=== PATIENT | female | born 1960 | race Caucasian/White ===

== ENCOUNTER 2017-05-30 09:17 | Day surgery (SDC) | payer OTHER ==
[2017-05-28 12:04] VITALS: BMI 26.2
[~2017-05-30 09:17] MED LIST: LACTATED RINGERS 1,000 ML IV SCH
[2017-05-30 10:46] VITALS: RESP 16; TEMP 98.9
[2017-05-30] MEDS ORDERED: LIDOCAINE 1% 20 ML VIAL (10MG/ML) FOR IV START INTRADERMA ONE (10:47)
[2017-05-30] MEDS ORDERED: LIDOCAINE 1% INJ 10MG/ML (20 ML MDV) ONE (11:35)
[2017-05-30] MEDS ORDERED: PROPOFOL 10 MG/ML 20 ML VIAL IV ONE (11:35)
--- NOTE | 2017-05-30 11:40 | P.GSHP ---
History of Present Illness H&P Date: 05/30/17 Chief Complaint: GERD, constipation, change in bowel habits This is a 56-year-old female who's had issues with GERD and constipation. Patient also states she may have a rectal prolapse. She presents today for EGD and colonoscopy. Past Medical History Additional Past Medical History / Comment(s): constipation,can feel rectum inside vaginal space. History of Any Multi-Drug Resistant Organisms: None Reported Past Surgical History: Hysterectomy, Tonsillectomy Additional Past Surgical History / Comment(s): tonsillectomy x2,vocal polyps removed,elbow procedures to repair tears,nickolas plantar fasciitis,rectocele Past Anesthesia/Blood Transfusion Reactions: Postoperative Nausea & Vomiting ( PONV) Additional Past Anesthesia/Blood Transfusion Reaction / Comment(s): no hx blood transfusion Smoking Status: Former smoker - Past Family History Mother Family Medical History: No Reported History Father Family Medical History: Cancer Medications and Allergies Home Medications Medication Instructions Recorded Confirmed Type Ceyeerikae Pepper Supplement 1 tab PO DAILY 05/28/17 05/30/17 History Gabapentin [Neurontin] 400 mg PO BID PRN 05/28/17 05/30/17 History Linaclotide [Linzess] 145 mcg PO QAM 05/28/17 05/30/17 History Polyethylene Glycol 3350 [Miralax] 17 gm PO DAILY PRN 05/28/17 05/30/17 History Sennosides [Senokot] 25.8 mg PO BID 05/28/17 05/30/17 History Allergies Allergy/AdvReac Type Severity Reaction Status Date / Time Iodinated Contrast- Oral and Allergy Rash/Hives Verified 05/30/17 10:31 IV Dye iodine Allergy Rash/Hives Verified 05/30/17 10:31 levofloxacin [From Levaquin] Allergy tears Verified 05/30/17 10:31 multiple joints wendy Allergy Anaphylaxis Verified 05/30/17 10:31 penicillin V [From Pen-Vee K] Allergy Rash/Hives Verified 05/30/17 10:31 Surgical - Exam Vital Signs Temp Pulse Resp BP Pulse Ox 98.9 F 65 16 136/83 100 05/30/17 10:44 05/30/17 10:44 05/30/17 10:44 05/30/17 10:44 05/30/17 10:44 - General well developed, no distress - Eyes PERRL - ENT normal pinna - Neck no masses - Respiratory normal expansion - Cardiovascular Rhythm: regular - Abdomen Abdomen: soft, non tender Assessment and Plan Plan: GERD, constipation and change in bowel habits. We'll perform EGD and colonoscopy.
--- NOTE | 2017-05-30 12:00 | P.OP ---
Date of Procedure: 05/30/17 Preoperative Diagnosis: GERD Constipation Change in bowel habits Postoperative Diagnosis: Antral gastritis Hiatal hernia Mild esophagitis Normal redundant colon Procedure(s) Performed: EGD Colonoscopy Anesthesia: MAC Surgeon: Hussein Prather Pathology: other (Antrum, esophagus) Condition: stable Disposition: PACU Description of Procedure: The patient's placed on the endoscopy table in the lateral position. She received IV sedation. The gastroscope placed oropharynx and passed in the esophagus and stomach. The scope was then placed through the pylorus. The first and second portion of the duodenum appeared normal. The scope was then brought back and the antrum and this was mildly inflamed. Scope was then retroflexed and the remainder of the stomach appeared normal. There was a hiatal hernia visualized. The GE junction was at 38 cm. The distal esophagus was minimal inflamed and a biopsies performed. The proximal esophagus appeared normal. Scope was withdrawn for patient.
[2017-05-30 12:50] VITALS: BP 163/87; PULSE 61
== END 2017-05-30 13:16 | disposition home or self-care (01) ==
LOC: ORWHC2ENDO 09:17
PROVIDERS: ATTEND Surgery
DX: K29.50 Unspecified chronic gastritis without bleeding (principal); K20.9 Esophagitis, unspecified; K44.9 Diaphragmatic hernia without obstruction or gangrene; Z87.891 Personal history of nicotine dependence; Z79.899 Other long term (current) drug therapy; Z88.1 Allergy status to other antibiotic agents; Z91.041 Radiographic dye allergy status; Z88.0 Allergy status to penicillin; Z91.018 Allergy to other foods
CPT/HCPCS: 88305; 88342; 45378; 43239; J2001; J2704

== ENCOUNTER → 2018-02-14 | Outpatient (CLI) | payer OTHER ==
--- NOTE | 2018-02-14 09:25 | FL ---
EXAMINATION TYPE: FL barium enema w air contrast DATE OF EXAM: 02/14/2018 COMPARISON: NONE HISTORY: Constipation for 30 years with history of surgically corrected rectocele and enterocele 6 mo nths ago and prior hernia repair. Known flaccid sigmoid colon. TECHNIQUE: A double contrast barium enema study is performed. 3 minutes and 24 seconds of fluoroscop y time was utilized with 55 images saved. 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 There is progressive dilatation of the rectosigmoid junction to approximately 2.5 times the more dist al sigmoid colon. Few sigmoid small diverticula are incidentally seen. No evidence of any mass or janis yp, obstructing or constricting lesion throughout the colon. There is a persistent very small area of contrast filling past the balloon concerning for minimal prolapse recurrence although direct visuali zation is recommended to confirm this finding. Postevacuation images are unremarkable other than bita ined colonic contrast. IMPRESSION: 1. Persistent rectosigmoid distention to approximately 2.5 times the caliber of the proximal sigmoid colon compatible with the patient's history of atonic distal colon. 2. Small focal protuberant area left laterally concerning for focal recurrence of the rectocele. Dire ct visualization is recommended for confirmation. 3. Few sigmoid diverticula. No stricture or intraluminal filling defect.
== END ==
LOC: RADFLMAIN 07:35
PROVIDERS: ATTEND Surgery
DX: K63.89 Other specified diseases of intestine (principal); K57.30 Diverticulosis of large intestine without perforation or abscess without bleeding
CPT/HCPCS: 74280

== ENCOUNTER → 2018-03-07 | Outpatient (CLI) | payer OTHER ==
[2018-03-07 14:21] LABS: HCT 41.7 % (34.0-46.0); HGB 14.1 gm/dL (11.4-16.0); MCH 30.3 pg (25.0-35.0); MCHC 33.9 g/dL (31.0-37.0); MCV 89.3 fL (80.0-100.0); Mean Platelet Volume 6.9; Platelet Count 323 k/uL (150-450); RBC 4.67 m/uL (3.80-5.40); WBC 7.1 k/uL (3.8-10.6)
[2018-03-07 14:27] LABS: Potassium 4.2 mmol/L (3.5-5.1)
== END | disposition home or self-care (01) ==
LOC: LABPAT 13:23
PROVIDERS: ATTEND Surgery
DX: Z01.812 Encounter for preprocedural laboratory examination (principal)
CPT/HCPCS: 36415; 80051; 85027; 93005

== ENCOUNTER 2018-03-15 09:49 | Inpatient (IN) | payer OTHER ==
[2018-03-07 15:50] VITALS: BMI 25.8
[~2018-03-15 09:49] MED LIST changes: +DEXAMETHASONE SOD PHOSPHATE 10 MG/ML 1 ML VIAL IV ONE; +HEPARIN SODIUM,PORCINE 5,000 UNIT/ML 1 ML VIAL SQ ONE; -LACTATED RINGERS 1,000 ML IV SCH; +MIDAZOLAM 2 MG/2 ML VIAL IV PRN; +ONDANSETRON 4 MG/2 ML VIAL IVP ONE; +SCOPOLAMINE 1.5MG/72HR PATCH TRANSDERM ONE; +ceFAZolin IN SWFI 2 GM/20 ML SYRINGE IVP ONE; +fentaNYL (PF) 50 MCG/ML 2 ML AMP IV PRN
[2018-03-15] MEDS ORDERED: LACTATED RINGERS 1,000 ML IV ONE ×2 (10:30→12:15)
[2018-03-15] MEDS ORDERED: LIDOCAINE 1% 20 ML VIAL (10MG/ML) FOR IV START INTRADERMA ONE (10:30)
[2018-03-15] MEDS ORDERED: MIDAZOLAM 2 MG/2 ML VIAL IVP ONE (10:40)
--- NOTE | 2018-03-15 10:46 | P.GSHP ---
History of Present Illness H&P Date: 03/15/18 Chief Complaint: diverticulitis, constipation this a 57-year-old female who's had chronic issues with diverticulitis and constipation. Patient developed severe pain from constipation. She also has diverticulitis. Patient rents today for low anterior section. Patient centimeters surgery including possible colostomy. Past Medical History Past Medical History: Asthma, GERD/Reflux, Hyperlipidemia Additional Past Medical History / Comment(s): COLD-INDUCED ASTHMA. CHRONIC Severe Constipation, RECTOSIGMOID BOWEL DISTENTION. HX Hiatal Hernia. History of Any Multi-Drug Resistant Organisms: None Reported Past Surgical History: Hysterectomy, Tonsillectomy Additional Past Surgical History / Comment(s): tonsillectomy x2. Vocal polyps removed, Elbow procedures to repair tears. Ricardo plantar fasciitis PROC. Rectocele, ENTEROCELE SURG X2. LAP EYAD 06/21/2017. Past Anesthesia/Blood Transfusion Reactions: Postoperative Nausea & Vomiting ( PONV) Additional Past Anesthesia/Blood Transfusion Reaction / Comment(s): no hx blood transfusion Smoking Status: Former smoker - Past Family History Mother Family Medical History: No Reported History Father Family Medical History: Cancer Medications and Allergies Home Medications Medication Instructions Recorded Confirmed Type Gabapentin [Neurontin] 400 mg PO BID PRN 05/28/17 03/07/18 History Linaclotide [Linzess] 145 mcg PO BID 05/28/17 03/07/18 History Polyethylene Glycol 3350 [Miralax] 17 gm PO DAILY PRN 05/28/17 03/07/18 History Diclofenac Sodium [Voltaren] 50 mg PO BID PRN 06/15/17 03/07/18 History Sennosides [Senna] 8.6 mg PO BID 06/21/17 03/07/18 History Albuterol Inhaler [Ventolin Hfa 1 - 2 puff INHALATION RT-Q6H PRN 03/07/18 History Inhaler] Albuterol Inhaler [Ventolin Hfa 1 - 2 puff INHALATION RT-Q6H PRN 03/07/18 History Inhaler] Biotin (Unknown Dose) 1 tab PO DAILY 03/07/18 03/15/18 History Gummy 1 dose PO DAILY 03/07/18 03/15/18 History Vitamin B (Unknown Dose) 1 tab PO DAILY 03/07/18 03/15/18 History Allergies Allergy/AdvReac Type Severity Reaction Status Date / Time cortisone Allergy Anaphylaxis Verified 03/07/18 15:33 Iodinated Contrast- Oral and Allergy Rash/Hives Verified 03/07/18 15:33 IV Dye iodine Allergy Rash/Hives Verified 03/07/18 15:33 levofloxacin [From Levaquin] Allergy tears Verified 03/07/18 15:33 multiple joints wendy Allergy Anaphylaxis Verified 03/07/18 15:33 penicillin V [From Pen-Vee K] Allergy Rash/Hives Verified 03/07/18 15:33 FLU VACCINE Allergy Nausea & Uncoded 03/07/18 15:33 Vomiting, FEVER Surgical - Exam Vital Signs Temp Pulse Resp BP Pulse Ox 98.0 F 73 18 191/89 99 03/15/18 10:15 03/15/18 10:15 03/15/18 10:15 03/15/18 10:15 03/15/18 10:15 - General well developed, no distress - Eyes PERRL - ENT normal pinna - Neck no masses - Respiratory normal expansion - Cardiovascular Rhythm: regular - Abdomen Abdomen: soft, non tender Assessment and Plan Plan: history of chronic constipation Diverticulitis we willPerformed low anterior section
[2018-03-15] MEDS ORDERED: NALOXONE 0.4 MG/ML 1 ML VIAL IV PRN (11:04)
[2018-03-15] MEDS ORDERED: ePHEDrine SULFATE/0.9% NACL/PF 50 MG/5 ML SYRINGE IV ONE (11:11)
[2018-03-15] MEDS ORDERED: ROCURONIUM BROMIDE 10 MG/ML 10 ML VIAL IV ONE (11:11)
[2018-03-15] MEDS ORDERED: fentaNYL (PF) 50 MCG/ML 2 ML AMP ONE (11:11)
[2018-03-15] MEDS ORDERED: HEPARIN SODIUM,PORCINE 5,000 UNIT/ML 1 ML VIAL ONE (11:11)
[2018-03-15] MEDS ORDERED: SUCCINYLCHOLINE CHLORIDE 100 MG/5 ML SYR IV ONE (11:11)
[2018-03-15] MEDS ORDERED: GLYCOPYRROLATE 0.2 MG/ML 2 ML VIAL ONE (11:11)
[2018-03-15] MEDS ORDERED: PROPOFOL 10 MG/ML 20 ML VIAL IV ONE (11:11)
[2018-03-15] MEDS ORDERED: NEOSTIGMINE 1 MG/ML 10 ML VIAL ONE (11:11)
[2018-03-15] MEDS ORDERED: BENZOCAINE/MENTHOL LOZENG 1 EACH LOZENGE MUCOUS MEM PRN (13:01)
--- NOTE | 2018-03-15 13:01 | P.OP ---
Date of Procedure: 03/15/18 Preoperative Diagnosis: Diverticulitis Constipation Postoperative Diagnosis: Diverticulitis Constipation Procedure(s) Performed: Low anterior resection Anesthesia: PORSHA Surgeon: Hussein Prather Estimated Blood Loss (ml): 50 Pathology: other (Sigmoid and left colon) Condition: stable Disposition: PACU Description of Procedure: PriDESCRIPTION OF PROCEDURE: The patient was placed on the operating table in the supine position. Patient received a general anesthesia. Patient was then placed in the dorsal lithotomy position. The patients abdomen was prepped and draped in the usual sterile fashion. Through a low midline incision, the abdomen was entered. The Shira retractor was placed in the wound. The stomach appeared normal. The small bowel appeared normal. The liver appeared normal. The right colon and transverse colon appeared normal. On the left colon, there was an extensive diverticulosis noted. The sigmoid colon was then mobilized by dividing the white line of Toldt with electrocautery. At this point, the proximal sigmoid colon was transected with a GI stapler after a window had been made in the mesentery. The distal sigmoid colon was then dissected. Mesentery was taken down between Brooke clamps and ligated with #0 silk ties. At a point beyond the lesion, the bowel was then transected with a Proximate stapler. This was then removed. The splenic flexure was then taken down in order to provide adequate lengthening of the sigmoid colon. At this point, the auto purse-string suture device was placed across the proximal colon and fired. The colon was then opened. The 29 mm EEA anvil was then placed into the colon and then the purse- string was secured. The EEA stapler device was then placed in the patients anus and passed into the rectum. The nail for the EEA was then brought out through the distal rectum and then attached to the anvil. The EEA stapler device was then fired. The anastomosis was inspected. There were 2 good donuts of tissue removed from the EEA stapler. The anastomosis was then tested under water and there was no air leak seen. At this point the abdomen was then irrigated. There was no bleeding seen. The fascia was then closed with double stranded #1 PDS. The skin was closed with mariana. The patient tolerated the procedure well.
[2018-03-15] MEDS: ROPIVACAINE 250 MG, HYDROMORPHONE (PF) 5 MG in SODIUM CHLORIDE 0.9% 200 ML EPIDURAL PRN ×2 (13:07→14:07)
[2018-03-15] MEDS ORDERED: ONDANSETRON 4 MG/2 ML VIAL IVP ONE (13:30)
[2018-03-15] MEDS ORDERED: diphenhydrAMINE 50 MG/ML 1 ML VIAL IVP ONE (13:35)
[2018-03-15 16:47] LABS: Basophils % (A) 0 %; Eosinophils % (A) 0 %; HCT 42.8 % (34.0-46.0); HGB 14.4 gm/dL (11.4-16.0); Lymphocytes # (A) 0.5 k/uL (1.0-4.8); Lymphocytes % (A) 5 %; MCH 30.1 pg (25.0-35.0); MCHC 33.6 g/dL (31.0-37.0); MCV 89.7 fL (80.0-100.0); Mean Platelet Volume 6.9; Monocytes # (A) 0.3 k/uL (0-1.0); Monocytes % (A) 3 %; Neutrophils # (A) 10.4 k/uL (1.3-7.7); Neutrophils % (A) 92 %; Platelet Count 277 k/uL (150-450); RBC 4.77 m/uL (3.80-5.40); RDW 12.8 % (11.5-15.5); WBC 11.3 k/uL (3.8-10.6)
[2018-03-15] MEDS: ONDANSETRON 4 MG/2 ML VIAL IVP PRN (16:57)
[2018-03-15 17:05] LABS: Anion Gap 9 mmol/L; Blood Urea Nitrogen 10 mg/dL (7-17); Calcium 8.7 mg/dL (8.4-10.2); Carbon Dioxide 23 mmol/L (22-30); Chloride 108 mmol/L (98-107); Glucose 141 mg/dL (74-99); Potassium 3.8 mmol/L (3.5-5.1); Sodium 140 mmol/L (137-145)
[2018-03-15] MEDS: LACTATED RINGERS 1,000 ML IV SCH (17:15)
[2018-03-15] MEDS: D5-0.45% NACL WITH KCL 20MEQ/L 1,000 ML IV SCH (18:01)
[2018-03-15] MEDS: HEPARIN SODIUM,PORCINE 5,000 UNIT/ML 1 ML VIAL SQ SCH (18:02)
--- NOTE | 2018-03-15 20:02 | P.CONS ---
History of Present Illness - Reason for Consult Consult date: 03/15/18 Medical management of asthma, hyperlipidemia and other medical problems - Chief Complaint Elective colon surgery - History of Present Illness Patient is a 57-year-old female with known history of asthma, hyperlipidemia and history of GERD status post Eyad fundoplication as well as chronic severe constipation with rectosigmoid bowel distention as well as diverticulitis was admitted to the hospital for low anterior resection. Patient tolerated the procedure. Currently pain is controlled with epidural. Complains of nausea otherwise denied any vomiting. No chest pain or shortness of breath. No headache or dizziness or lightheadedness. Review of Systems Constitutional: Patient denies any fever or chills . No generalized weakness or weight loss. Abdomen: Abdominal soreness and nausea. No vomiting. Cardiovascular: Patient denies any chest pain or short of breath no palpitations. Respiratory: patient denied any cough is from production. No shortness of breath Neurologic: Patient denied any numbness or tingling headache. Musculoskeletal: Patient denies any complaints of joint swelling or deformity. Skin: Negative Psychiatric: Negative Endocrine: No heat or cold intolerance. No recent weight gain. Genitourinary: No dysuria or hematuria. All other 14 point ROS negative except the above Past Medical History Past Medical History: Asthma, GERD/Reflux, Hyperlipidemia Additional Past Medical History / Comment(s): COLD-INDUCED ASTHMA. CHRONIC Severe Constipation, RECTOSIGMOID BOWEL DISTENTION. HX Hiatal Hernia. History of Any Multi-Drug Resistant Organisms: None Reported Past Surgical History: Hysterectomy, Tonsillectomy Additional Past Surgical History / Comment(s): tonsillectomy x2. Vocal polyps removed, Elbow procedures to repair tears. Ricardo plantar fasciitis PROC. Rectocele, ENTEROCELE SURG X2. LAP EYAD 06/21/2017. Past Anesthesia/Blood Transfusion Reactions: Postoperative Nausea & Vomiting ( PONV) Additional Past Anesthesia/Blood Transfusion Reaction / Comm: no hx blood transfusion Smoking Status: Former smoker - Past Family History Mother Family Medical History: No Reported History Father Family Medical History: Cancer Medications and Allergies Home Medications Medication Instructions Recorded Confirmed Type Gabapentin [Neurontin] 400 mg PO BID PRN 05/28/17 03/15/18 History Linaclotide [Linzess] 145 mcg PO BID 05/28/17 03/15/18 History Polyethylene Glycol 3350 [Miralax] 17 gm PO DAILY PRN 05/28/17 03/15/18 History Diclofenac Sodium [Voltaren] 50 mg PO BID PRN 06/15/17 03/15/18 History Sennosides [Senna] 8.6 mg PO BID 06/21/17 03/15/18 History Albuterol Inhaler [Ventolin Hfa 1 - 2 puff INHALATION RT-Q6H PRN 03/07/18 History Inhaler] Gummy 1 tab PO DAILY 03/07/18 03/15/18 History Vitamin B (Unknown Dose) 1 tab PO DAILY 03/07/18 03/15/18 History Biotin 5 mg PO DAILY 03/15/18 03/15/18 History Docusate [Colace] 100 mg PO BID #20 capsule 03/15/18 Rx HYDROcodone/APAP 7.5-325MG [[place] 1 tab PO Q4H PRN 3 Days #18 tab 03/15/18 Rx 7.5-325] Allergies Allergy/AdvReac Type Severity Reaction Status Date / Time cortisone Allergy Anaphylaxis Verified 03/15/18 14:47 Iodinated Contrast- Oral and Allergy Rash/Hives Verified 03/15/18 14:47 IV Dye iodine Allergy Rash/Hives Verified 03/15/18 14:47 levofloxacin [From Levaquin] Allergy tears Verified 03/15/18 14:47 multiple joints wendy Allergy Anaphylaxis Verified 03/15/18 14:47 penicillin V [From Pen-Vee K] Allergy Rash/Hives Verified 03/15/18 14:47 FLU VACCINE Allergy Nausea & Uncoded 03/07/18 15:33 Vomiting, FEVER Physical Exam Vitals: Vital Signs Temp Pulse Resp BP Pulse Ox 03/15/18 14:07 64 16 126/67 94 L 03/15/18 13:52 61 16 132/65 94 L 03/15/18 13:37 67 16 144/64 94 L 03/15/18 13:22 67 16 162/73 94 L 03/15/18 13:07 98 F 69 16 170/70 98 03/15/18 10:54 71 16 131/64 99 03/15/18 10:44 72 18 151/74 98 03/15/18 10:15 98.0 F 73 18 191/89 99 Intake and Output 03/15/18 03/15/18 03/15/18 06:59 14:59 22:59 Intake Total 1510 Output Total 210 Balance 1300 Intake: IV 1510 Output: Urine 190 Estimated Blood Loss 20 PHYSICAL EXAMINATION: Patient is lying in the bed comfortably, mild distress, awake alert and oriented.. HEENT: Normocephalic. Neck is supple. Pupils reactive. Nostrils clear. Oral cavity is moist. Ears reveal no drainage. Neck reveals no JVD, carotid bruits, or thyromegaly. CHEST EXAMINATION: Trachea is central. Symmetrical expansion. Decreased bibasilar air entry. Lung cho clear to auscultation and percussion. CARDIAC: Normal S1, S2 with no gallops. No murmurs ABDOMEN: Soft. Bowel sounds diminished. No organomegaly. No abdominal bruits. Extremities: reveal no edema. No clubbing or cyanosis Neurologically awake, alert, oriented x3 with well-coordinated movements. No focal deficits noted Skin: No rash or skin lesions. Psychiatric: Coperative. Nonsuicidal Musculoskeletal: No joint swelling or deformity. Normal range of motion. Results CBC & Chem 7: 03/15/18 16:19 03/15/18 16:19 Assessment and Plan Assessment: Low anterior resection of the colon due to diverticulitis and constipation chronic Asthma stable. GERD with history of Eyad fundoplication Hyperlipidemia Chronic severe constipation with the rectosigmoid bowel distention History of hiatal hernia Previous history of smoking Plan: Patient will be continued on IV fluids pain management and encouraged incentive spirometry. Continue with the breathing treatments as needed for asthma. Otherwise we'll continue the current management and further recommendations based on the clinical course. We will continue to follow closely. Thank you for your consult. Time with Patient: Greater than 30
[2018-03-15] MEDS: ALVIMOPAN 12 MG CAPSULE PO SCH (21:23)
[2018-03-15] MEDS: FAMOTIDINE 20 MG/2 ML VIAL IV SCH (21:23)
[2018-03-16] MEDS: D5-0.45% NACL WITH KCL 20MEQ/L 1,000 ML IV SCH ×4 (01:36→17:12)
[2018-03-16] MEDS: HEPARIN SODIUM,PORCINE 5,000 UNIT/ML 1 ML VIAL SQ SCH ×4 (01:36→23:32)
[2018-03-16] MEDS: ONDANSETRON 4 MG/2 ML VIAL IVP PRN ×2 (01:50→18:52)
[2018-03-16] MEDS: LACTATED RINGERS 1,000 ML IV SCH (03:35)
[2018-03-16] MEDS: FAMOTIDINE 20 MG/2 ML VIAL IV SCH ×2 (08:52→21:04)
[2018-03-16] MEDS: ALVIMOPAN 12 MG CAPSULE PO SCH ×2 (08:53→21:05)
[2018-03-16] MEDS: ROPIVACAINE 250 MG, HYDROMORPHONE (PF) 5 MG in SODIUM CHLORIDE 0.9% 200 ML EPIDURAL PRN (10:44)
--- NOTE | 2018-03-16 13:43 | P.PN ---
Subjective Progress Note Date: 03/16/18 Patient is status post lower anterior resection. She is doing very well. Pain is controlled with epidural. She is using her incentive spirometer. No nausea or vomiting. She is tolerating liquids. Objective - Vital Signs Vital signs: Vital Signs Temp 98.3 F 03/16/18 08:02 Pulse 75 03/16/18 08:02 Resp 18 03/16/18 08:02 BP 99/53 03/16/18 08:02 Pulse Ox 96 03/16/18 08:02 Intake & Output 03/15/18 03/16/18 03/16/18 18:59 06:59 18:59 Intake Total 2150 2000 Output Total 410 1250 600 Balance 1740 750 -600 Weight 74.843 kg Intake: IV 1510 Intake, IV Titration 2000 Amount D5-0.45% NaCl with KCl 2000 20Meq/l 1,000 ml @ 125 mls/hr IV .Q8H [facility] Rx#: [id number] Oral 640 Output: Urine 390 800 600 Emesis 450 Estimated Blood Loss 20 Other: Voiding Method Indwelling Catheter Indwelling Catheter - Exam ABDOMEN: Active. Nondistended. No peritonitis. GENERAL: Well developed and in no acute distress. Pleasant. HEENT: No sclera icterus. Extraocular movements grossly intact. Moist buccal mucosa. Head is atraumatic, normocephalic. Hears conversational speech. No nasal drainage. NECK: Supple without lymphadenopathy. No JV distention. CHEST: Non-labored respirations and equal bilateral excursions. CARDIOVASCULAR: Regular rate and rhythm. Palpable 2+ radial pulses. MUSCULOSKELETAL: No clubbing, cyanosis or edema. NEUROLOGIC: No focal or lateralizing signs. PSYCH: Appropriate affect. Alert and oriented to person, place and time. SKIN: Good skin turgor. Well perfused. - Labs CBC & Chem 7: 03/15/18 16:19 03/15/18 16:19 Labs: Abnormal Lab Results - Last 24 Hours (Table) 03/15/18 03/15/18 Range/Units 16:19 16:19 WBC 11.3 H (3.8-10.6) k/uL Neutrophils # 10.4 H (1.3-7.7) k/uL Lymphocytes # 0.5 L (1.0-4.8) k/uL Chloride 108 H (98-107) mmol/L Glucose 141 H (74-99) mg/dL Assessment and Plan (1) Diverticulitis large intestine Current Visit: Yes Status: Acute Code(s): K57.32 - DVTRCLI OF LG INT W/O PERFORATION OR ABSCESS W/O BLEEDING SNOMED Code(s): 8284366 (2) S/P colectomy Current Visit: Yes Status: Acute Code(s): Z90.49 - ACQUIRED ABSENCE OF OTHER SPECIFIED PARTS OF DIGESTIVE TRACT SNOMED Code(s): 791093097 Plan: 1. Continue with epidural per anesthesia protocol 2. Continue with clear liquid diet. 3. Inpatient hospitalization with resumption of bowel function for disposition
--- NOTE | 2018-03-16 18:53 | P.PN ---
Progress Note - Text Progress Note Date: 03/16/18 Postoperative day # status post low anterior resection /epidural catheter placed for postoperative analgesia, patient doing well epidural site okay, patient currently on combination of epidural infusion solution of ropivacaine 0.0625% and Dilaudid 20 g per mL the infusion rate at 10 ml per hour , patient had no motor deficit epidural site okay , vital signs stable ,VAS 1-2 / 10 , Assessment and plan= post operative day # patient doing well ,pain well controlled , there is no anesthesia related complications
--- NOTE | 2018-03-17 01:36 | P.PN ---
Subjective Progress Note Date: 03/16/18 Principal diagnosis: Low anterior colon resection Patient is a 57-year-old female with known history of asthma, hyperlipidemia and history of GERD status post Mary fundoplication as well as chronic severe constipation with rectosigmoid bowel distention as well as diverticulitis was admitted to the hospital for low anterior resection. Patient tolerated the procedure. Currently pain is controlled with epidural. Complains of nausea otherwise denied any vomiting. No chest pain or shortness of breath. No headache or dizziness or lightheadedness. 03/16/2018 Patient denied any complaints of abdominal pain today. Patient is tolerating oral diet and did have bowel movement. No nausea vomiting. No complaints of chest pain or shortness of breath. Pain is controlled with epidural. No fever no chills. All other review of systems negative except the above Current medications reviewed Objective - Vital Signs Vital signs: Vital Signs Temp 98.3 F 03/16/18 08:02 Pulse 75 03/16/18 08:02 Resp 18 03/16/18 08:02 BP 99/53 03/16/18 08:02 Pulse Ox 96 03/16/18 08:02 Intake & Output 03/15/18 03/16/18 03/16/18 18:59 06:59 18:59 Intake Total 2150 2000 Output Total 410 1250 600 Balance 1740 750 -600 Weight 74.843 kg Intake: IV 1510 Intake, IV Titration 2000 Amount D5-0.45% NaCl with KCl 2000 20Meq/l 1,000 ml @ 125 mls/hr IV .Q8H [facility] Rx#: [id number] Oral 640 Output: Urine 390 800 600 Emesis 450 Estimated Blood Loss 20 Other: Voiding Method Indwelling Catheter Indwelling Catheter - Exam PHYSICAL EXAMINATION: Patient is lying in the bed comfortably, no acute distress, awake alert and oriented.. HEENT: Normocephalic. Neck is supple. Pupils reactive. Nostrils clear. Oral cavity is moist. Ears reveal no drainage. Neck reveals no JVD, carotid bruits, or thyromegaly. CHEST EXAMINATION: Trachea is central. Symmetrical expansion. Lung cho clear to auscultation and percussion. CARDIAC: Normal S1, S2 with no gallops. No murmurs ABDOMEN: Soft. Bowel sounds sluggish. Surgical site intact.. No organomegaly. No abdominal bruits. Extremities: reveal no edema. No clubbing or cyanosis Neurologically awake, alert, oriented x3 with well-coordinated movements. No focal deficits noted Skin: No rash or skin lesions. Psychiatric: Coperative. Nonsuicidal Musculoskeletal: No joint swelling or deformity. Normal range of motion. - Labs CBC & Chem 7: 03/15/18 16:19 03/15/18 16:19 Labs: Abnormal Lab Results - Last 24 Hours (Table) 03/15/18 03/15/18 Range/Units 16:19 16:19 WBC 11.3 H (3.8-10.6) k/uL Neutrophils # 10.4 H (1.3-7.7) k/uL Lymphocytes # 0.5 L (1.0-4.8) k/uL Chloride 108 H (98-107) mmol/L Glucose 141 H (74-99) mg/dL Assessment and Plan Assessment: Low anterior resection of the colon due to diverticulitis and constipation chronic Asthma stable. GERD with history of Mary fundoplication Hyperlipidemia Chronic severe constipation with the rectosigmoid bowel distention History of hiatal hernia Previous history of smoking Plan: Patient will be continued on IV fluids pain management and encouraged incentive spirometry. Continue with the breathing treatments as needed for asthma. Otherwise we'll continue the current management and further recommendations based on the clinical course. We will continue to follow closely. Thank you for your consult. Time with Patient: Greater than 30
[2018-03-17] MEDS: D5-0.45% NACL WITH KCL 20MEQ/L 1,000 ML IV SCH ×3 (02:10→23:20)
[2018-03-17] MEDS: METOCLOPRAMIDE 5 MG/ML 2 ML VIAL IVP PRN ×2 (02:10→12:04)
[2018-03-17] MEDS: LACTATED RINGERS 1,000 ML IV SCH (06:01)
[2018-03-17] MEDS: HEPARIN SODIUM,PORCINE 5,000 UNIT/ML 1 ML VIAL SQ SCH ×3 (09:47→23:20)
[2018-03-17] MEDS: ALVIMOPAN 12 MG CAPSULE PO SCH ×2 (09:47→20:25)
[2018-03-17] MEDS: FAMOTIDINE 20 MG/2 ML VIAL IV SCH ×2 (09:47→20:25)
[2018-03-17] MEDS: ROPIVACAINE 250 MG, HYDROMORPHONE (PF) 5 MG in SODIUM CHLORIDE 0.9% 200 ML EPIDURAL PRN (11:52)
--- NOTE | 2018-03-17 12:12 | P.PN ---
Subjective Progress Note Date: 03/17/18 Patient is status post lower anterior resection. She reports new onset nausea. She doesn't feel as well today. She has continued to ambulate along the unit. Pain is controlled. She is concerned about being discharged to [facility]. She has no hope at home. Objective - Vital Signs Vital signs: Vital Signs Temp 99.8 F H 03/17/18 08:08 Pulse 70 03/17/18 08:08 Resp 16 03/17/18 08:08 BP 115/69 03/17/18 08:08 Pulse Ox 95 03/17/18 08:08 Intake & Output 03/16/18 03/17/18 03/17/18 18:59 06:59 18:59 Intake Total 1999 368 Output Total 1700 1500 Balance -1700 500 368 Intake: Intake, IV Titration 1999 250 Amount D5-0.45% NaCl with KCl 2000 20Meq/l 1,000 ml @ 125 mls/hr IV .Q8H [facility] Rx#: [id number] Ropivacaine 250 mg 250 Hydromorphone (Pf) 5 mg In Sodium Chloride 0.9% 200 ml @ Per Protocol EPIDURAL .Q0M PRN Rx#: [id number] Oral 118 Output: Urine 1700 1200 Emesis 300 Other: Voiding Method Indwelling Catheter Indwelling Catheter Indwelling Catheter # Voids 3 - Exam ABDOMEN: Optifoam dressing intact. No signs of cellulitis or infection. GENERAL: Well developed and in no acute distress. Pleasant. HEENT: No sclera icterus. Extraocular movements grossly intact. Moist buccal mucosa. Head is atraumatic, normocephalic. Hears conversational speech. No nasal drainage. NECK: Supple without lymphadenopathy. No JV distention. CHEST: Non-labored respirations and equal bilateral excursions. CARDIOVASCULAR: Regular rate and rhythm. Palpable 2+ radial pulses. MUSCULOSKELETAL: No clubbing, cyanosis or edema. NEUROLOGIC: No focal or lateralizing signs. PSYCH: Appropriate affect. Alert and oriented to person, place and time. SKIN: Good skin turgor. Well perfused. - Labs CBC & Chem 7: 03/15/18 16:19 03/15/18 16:19 Assessment and Plan (1) Diverticulitis large intestine Current Visit: Yes Status: Acute Code(s): K57.32 - DVTRCLI OF LG INT W/O PERFORATION OR ABSCESS W/O BLEEDING SNOMED Code(s): 4087706 (2) S/P colectomy Current Visit: Yes Status: Acute Code(s): Z90.49 - ACQUIRED ABSENCE OF OTHER SPECIFIED PARTS OF DIGESTIVE TRACT SNOMED Code(s): 982214648 Plan: 1. She had a low-grade fever and recommend discontinuing the Resendiz catheter in 24 hours alongside epidural. 2. Adjustment of medications as antiemetics. She has scopolamine patch. 3. Case management advised for home health care needs. 4. Repeat laboratory work.
[2018-03-17] MEDS ORDERED: TRIMETHOBENZAMIDE 100 MG/ML 2 ML VIAL IM STA (12:13)
[2018-03-17] MEDS ORDERED: SCOPOLAMINE 1.5MG/72HR PATCH TRANSDERM SCH (12:30)
[2018-03-17 13:13] LABS: Basophils % (A) 0 %; Eosinophils # (A) 0.3 k/uL (0-0.7); Eosinophils % (A) 3 %; HGB 12.5 gm/dL (11.4-16.0); Lymphocytes % (A) 12 %; MCV 90.8 fL (80.0-100.0); Mean Platelet Volume 7.1; Monocytes # (A) 0.5 k/uL (0-1.0); Monocytes % (A) 6 %; Neutrophils # (A) 6.3 k/uL (1.3-7.7); Neutrophils % (A) 77 %; Platelet Count 228 k/uL (150-450); RBC 4.18 m/uL (3.80-5.40); RDW 12.9 % (11.5-15.5); WBC 8.2 k/uL (3.8-10.6)
[2018-03-17 13:26] LABS: Anion Gap 6 mmol/L; Blood Urea Nitrogen 7 mg/dL (7-17); Calcium 8.4 mg/dL (8.4-10.2); Carbon Dioxide 28 mmol/L (22-30); Chloride 101 mmol/L (98-107); Glucose 119 mg/dL (74-99); Magnesium 1.8 mg/dL (1.6-2.3); Phosphorus 2.6 mg/dL (2.5-4.5); Potassium 4.2 mmol/L (3.5-5.1); Sodium 135 mmol/L (137-145)
[2018-03-17] MEDS ORDERED: HYDROcodone/APAP 7.5-325MG 1 EACH TAB PO PRN (14:28)
--- NOTE | 2018-03-17 14:30 | P.PN ---
Progress Note - Text Progress Note Date: 03/17/18 Patient is postoperative day#2 status post low anterior resection, epidural catheter placed for postoperative analgesia, patient currently on epidural infusion of ropivacaine/Dilaudid, pain is well controlled, epidural catheter was dislodged today, the patient was in bed, the plan was to discontinue the epidural catheter tomorrow, there is no need to replace the epidural catheter today, I will start patient on [place] 7.5/325 every 6 hours when necessary.
--- NOTE | 2018-03-17 14:35 | P.PN ---
Subjective Progress Note Date: 03/17/18 Principal diagnosis: Low anterior colon resection Patient is a 57-year-old female with known history of asthma, hyperlipidemia and history of GERD status post Mary fundoplication as well as chronic severe constipation with rectosigmoid bowel distention as well as diverticulitis was admitted to the hospital for low anterior resection. Patient tolerated the procedure. Currently pain is controlled with epidural. Complains of nausea otherwise denied any vomiting. No chest pain or shortness of breath. No headache or dizziness or lightheadedness. 03/16/2018 Patient denied any complaints of abdominal pain today. Patient is tolerating oral diet and did not have a bowel movement. No nausea vomiting. No complaints of chest pain or shortness of breath. Pain is controlled with epidural. No fever no chills. 03/17/2018 Patient has not had a bowel movement. Patient is complaining of nausea today. Currently on Reglan. Otherwise tolerating liquid diet. Pain is controlled with epidural. No fever no chills. No headache or dizziness or lightheadedness. All other review of systems negative except the above Current medications reviewed Objective - Vital Signs Vital signs: Vital Signs Temp 99.6 F 03/17/18 14:12 Pulse 70 03/17/18 14:12 Resp 16 03/17/18 14:12 BP 126/79 03/17/18 14:12 Pulse Ox 94 L 03/17/18 14:12 Intake & Output 03/16/18 03/17/18 03/17/18 18:59 06:59 18:59 Intake Total 1999 1118 Output Total 1700 1500 Balance -1189 398 7990 Intake: Intake, IV Titration 1999 1000 Amount D5-0.45% NaCl with KCl 2000 750 20Meq/l 1,000 ml @ 125 mls/hr IV .Q8H [facility] Rx#: [id number] Ropivacaine 250 mg 250 Hydromorphone (Pf) 5 mg In Sodium Chloride 0.9% 200 ml @ Per Protocol EPIDURAL .Q0M PRN Rx#: [id number] Oral 118 Output: Urine 1700 1200 Emesis 300 Other: Voiding Method Indwelling Catheter Indwelling Catheter Indwelling Catheter # Voids 3 - Exam PHYSICAL EXAMINATION: Patient is lying in the bed comfortably, no acute distress, awake alert and oriented.. HEENT: Normocephalic. Neck is supple. Pupils reactive. Nostrils clear. Oral cavity is moist. Ears reveal no drainage. Neck reveals no JVD, carotid bruits, or thyromegaly. CHEST EXAMINATION: Trachea is central. Symmetrical expansion. Lung cho clear to auscultation and percussion. CARDIAC: Normal S1, S2 with no gallops. No murmurs ABDOMEN: Soft. Bowel sounds sluggish. Surgical site intact.. No organomegaly. No abdominal bruits. Extremities: reveal no edema. No clubbing or cyanosis Neurologically awake, alert, oriented x3 with well-coordinated movements. No focal deficits noted Skin: No rash or skin lesions. Psychiatric: Coperative. Nonsuicidal Musculoskeletal: No joint swelling or deformity. Normal range of motion. - Labs CBC & Chem 7: 03/17/18 12:55 03/17/18 12:55 Labs: Abnormal Lab Results - Last 24 Hours (Table) 03/17/18 Range/Units 12:55 Sodium 135 L (137-145) mmol/L Glucose 119 H (74-99) mg/dL Assessment and Plan Assessment: Low anterior resection of the colon due to diverticulitis and constipation chronic Asthma stable. GERD with history of Mary fundoplication Hyperlipidemia Chronic severe constipation with the rectosigmoid bowel distention History of hiatal hernia Previous history of smoking Plan: Patient will be continued on IV fluids pain management and encouraged incentive spirometry. Continue with the breathing treatments as needed for asthma. Otherwise we'll continue the current management and further recommendations based on the clinical course. We will continue to follow closely. Thank you for your consult. Time with Patient: Greater than 30
[2018-03-17] MEDS: TAMSULOSIN 0.4 MG CAP.ER.24H PO SCH (17:42)
[2018-03-17] MEDS: METOCLOPRAMIDE 5 MG/ML 2 ML VIAL IVP SCH ×2 (17:42→23:20)
[2018-03-17] MEDS: NON-FORMULARY DRUG (Linaclotide [Linzess] 145 MCG) PO SCH (20:07)
[2018-03-18] MEDS: LACTATED RINGERS 1,000 ML IV SCH (05:15)
[2018-03-18] MEDS: METOCLOPRAMIDE 5 MG/ML 2 ML VIAL IVP SCH ×4 (05:19→23:51)
[2018-03-18] MEDS: D5-0.45% NACL WITH KCL 20MEQ/L 1,000 ML IV SCH ×3 (05:19→23:49)
[2018-03-18 07:24] LABS: Basophils % (A) 0 %; Eosinophils # (A) 0.4 k/uL (0-0.7); Eosinophils % (A) 4 %; HCT 37.4 % (34.0-46.0); HGB 12.7 gm/dL (11.4-16.0); Lymphocytes % (A) 12 %; MCH 29.9 pg (25.0-35.0); MCHC 33.9 g/dL (31.0-37.0); MCV 88.1 fL (80.0-100.0); Mean Platelet Volume 7.5; Monocytes # (A) 0.4 k/uL (0-1.0); Monocytes % (A) 5 %; Neutrophils # (A) 6.2 k/uL (1.3-7.7); Neutrophils % (A) 77 %; Platelet Count 250 k/uL (150-450); RBC 4.25 m/uL (3.80-5.40); WBC 8.1 k/uL (3.8-10.6)
[2018-03-18 07:47] LABS: Anion Gap 7 mmol/L; Blood Urea Nitrogen 5 mg/dL (7-17); Calcium 8.7 mg/dL (8.4-10.2); Carbon Dioxide 25 mmol/L (22-30); Chloride 104 mmol/L (98-107); Glucose 111 mg/dL (74-99); Potassium 4.1 mmol/L (3.5-5.1); Sodium 136 mmol/L (137-145)
[2018-03-18] MEDS: HEPARIN SODIUM,PORCINE 5,000 UNIT/ML 1 ML VIAL SQ SCH ×3 (08:15→23:51)
[2018-03-18] MEDS: ALVIMOPAN 12 MG CAPSULE PO SCH ×2 (08:15→21:20)
[2018-03-18] MEDS: FAMOTIDINE 20 MG/2 ML VIAL IV SCH ×2 (08:16→21:10)
[2018-03-18] MEDS: NON-FORMULARY DRUG (Linaclotide [Linzess] 145 MCG) PO SCH ×2 (08:21→21:13)
[2018-03-18] MEDS: GABAPENTIN 400 MG CAP PO PRN ×2 (09:02→21:10)
[2018-03-18] MEDS: ETODOLAC 200 MG CAPSULE PO PRN ×2 (09:02→21:10)
[2018-03-18] MEDS: TAMSULOSIN 0.4 MG CAP.ER.24H PO SCH (17:56)
--- NOTE | 2018-03-18 18:08 | P.PN ---
Subjective Progress Note Date: 03/18/18 Progress note being dictated for Dr. Mustafa Interval history:Patient is a 57-year-old female with known history of asthma, hyperlipidemia and history of GERD status post Mary fundoplication as well as chronic severe constipation with rectosigmoid bowel distention as well as diverticulitis was admitted to the hospital for low anterior resection. Patient tolerated the procedure. Currently pain is controlled with epidural. Complains of nausea otherwise denied any vomiting. No chest pain or shortness of breath. No headache or dizziness or lightheadedness. 03/16/2018 Patient denied any complaints of abdominal pain today. Patient is tolerating oral diet and did not have a bowel movement. No nausea vomiting. No complaints of chest pain or shortness of breath. Pain is controlled with epidural. No fever no chills. 03/17/2018 Patient has not had a bowel movement. Patient is complaining of nausea today. Currently on Reglan. Otherwise tolerating liquid diet. Pain is controlled with epidural. No fever no chills. No headache or dizziness or lightheadedness. All other review of systems negative except the above Current medications reviewed 03/18/18 pain controlled. Earlier this morning had an episode of nausea with vomiting. No flatus, no bowel movement, no diarrhea. Low-grade fevers, T-max 99.8, normal WBC. Maintaining O2 sats in the mid 90s on room air. Objective - Vital Signs Vital signs: Vital Signs Temp 97.6 F 03/18/18 14:39 Pulse 81 03/18/18 14:39 Resp 18 03/18/18 14:39 BP 131/73 03/18/18 14:39 Pulse Ox 91 L 03/18/18 14:39 Intake & Output 03/17/18 03/18/18 03/18/18 18:59 06:59 18:59 Intake Total 1118 2000 Output Total 1500 2500 1200 Balance -382 -500 -1200 Intake: Intake, IV Titration 1000 2000 Amount D5-0.45% NaCl with KCl 750 2000 20Meq/l 1,000 ml @ 125 mls/hr IV .Q8H [facility] Rx#: [id number] Ropivacaine 250 mg 250 Hydromorphone (Pf) 5 mg In Sodium Chloride 0.9% 200 ml @ Per Protocol EPIDURAL .Q0M PRN Rx#: [id number] Oral 118 Output: Urine 1500 2500 1200 Uretheral (Resendiz) 1200 Other: Voiding Method Indwelling Catheter Indwelling Catheter Indwelling Catheter # Voids 2 # Bowel Movements 1 - Exam Patient is lying in the bed comfortably, no acute distress, awake alert and oriented.. HEENT: Normocephalic. Neck is supple. Pupils reactive. Nostrils clear. Oral cavity is moist. Ears reveal no drainage. Neck reveals no JVD, carotid bruits, or thyromegaly. CHEST EXAMINATION: Trachea is central. Symmetrical expansion. Lung cho clear to auscultation and percussion. CARDIAC: Normal S1, S2 with no gallops. No murmurs ABDOMEN: Soft. Bowel sounds sluggish. Surgical site intact. No organomegaly. No abdominal bruits. Extremities: reveal no edema. No clubbing or cyanosis Neurologically awake, alert, oriented x3 with well-coordinated movements. No focal deficits noted Skin: No rash or skin lesions. Psychiatric: Coperative. Nonsuicidal Musculoskeletal: No joint swelling or deformity. Normal range of motion. - Labs CBC & Chem 7: 03/18/18 06:55 03/18/18 06:55 Labs: Abnormal Lab Results - Last 24 Hours (Table) 03/18/18 Range/Units 06:55 Sodium 136 L (137-145) mmol/L BUN 5 L (7-17) mg/dL Glucose 111 H (74-99) mg/dL Assessment and Plan Assessment: Low anterior resection of the colon due to diverticulitis and constipation chronic Asthma stable. GERD with history of Mary fundoplication Hyperlipidemia Chronic severe constipation with the rectosigmoid bowel distention History of hiatal hernia Previous history of smoking Plan: Continue on current medication regime ,monitoring and symptomatic treatment. Aggressive pulmonary toileting with incentive spirometer reinforce. IV fluid hydration. Increase ambulation as tolerated. Diet advancement as per surgery. The impression and plan of care has been dictated as directed. : I performed a history and examination of this patient, discussed the same with the dictator. I agree with the dictator's note ,documented as a scribe. Any additional findings or plans will be noted.
--- NOTE | 2018-03-18 19:26 | P.PN ---
Subjective Progress Note Date: 03/18/18 Patient is status post lower anterior resection. Resendiz catheter is out. Epidural is removed. She is tolerating gabapentin for pain. No nausea. She had a large bowel movement and is passing flatus. She is afraid to go home. She is seeking rehab options. Objective - Vital Signs Vital signs: Vital Signs Temp 97.6 F 03/18/18 14:39 Pulse 81 03/18/18 14:39 Resp 18 03/18/18 14:39 BP 131/73 03/18/18 14:39 Pulse Ox 91 L 03/18/18 14:39 Intake & Output 03/18/18 03/18/18 03/19/18 06:59 18:59 06:59 Intake Total 2000 Output Total 2500 1200 Balance -500 -1200 Intake: Intake, IV Titration 2000 Amount D5-0.45% NaCl with KCl 2000 20Meq/l 1,000 ml @ 125 mls/hr IV .Q8H [facility] Rx#: [id number] Output: Urine 2500 1200 Uretheral (Resendiz) 1200 Other: Voiding Method Indwelling Catheter Indwelling Catheter # Voids 2 # Bowel Movements 1 - Exam ABDOMEN: Optifoam dressing intact. No signs of cellulitis or infection. GENERAL: Well developed and in no acute distress. Pleasant. HEENT: No sclera icterus. Extraocular movements grossly intact. Moist buccal mucosa. Head is atraumatic, normocephalic. Hears conversational speech. No nasal drainage. NECK: Supple without lymphadenopathy. No JV distention. CHEST: Non-labored respirations and equal bilateral excursions. CARDIOVASCULAR: Regular rate and rhythm. Palpable 2+ radial pulses. MUSCULOSKELETAL: No clubbing, cyanosis or edema. NEUROLOGIC: No focal or lateralizing signs. PSYCH: Appropriate affect. Alert and oriented to person, place and time. SKIN: Good skin turgor. Well perfused. - Labs CBC & Chem 7: 03/18/18 06:55 03/18/18 06:55 Labs: Abnormal Lab Results - Last 24 Hours (Table) 03/18/18 Range/Units 06:55 Sodium 136 L (137-145) mmol/L BUN 5 L (7-17) mg/dL Glucose 111 H (74-99) mg/dL Assessment and Plan (1) Diverticulitis large intestine Current Visit: Yes Status: Acute Code(s): K57.32 - DVTRCLI OF LG INT W/O PERFORATION OR ABSCESS W/O BLEEDING SNOMED Code(s): 8117853 (2) S/P colectomy Current Visit: Yes Status: Acute Code(s): Z90.49 - ACQUIRED ABSENCE OF OTHER SPECIFIED PARTS OF DIGESTIVE TRACT SNOMED Code(s): 293974662 Plan: 1. Advance diet. 2. Case management for rehab status. 3. Disposition 48+ hours.
[2018-03-18] MEDS: BENZOCAINE/MENTHOL LOZENG 1 EACH LOZENGE MUCOUS MEM PRN (22:19)
[2018-03-19] MEDS: LACTATED RINGERS 1,000 ML IV SCH (05:14)
[2018-03-19] MEDS: D5-0.45% NACL WITH KCL 20MEQ/L 1,000 ML IV SCH ×3 (05:21→15:05)
[2018-03-19] MEDS: METOCLOPRAMIDE 5 MG/ML 2 ML VIAL IVP SCH ×3 (05:21→17:42)
[2018-03-19] MEDS: BENZOCAINE/MENTHOL LOZENG 1 EACH LOZENGE MUCOUS MEM PRN (07:29)
[2018-03-19] MEDS: NON-FORMULARY DRUG (Linaclotide [Linzess] 145 MCG) PO SCH ×2 (07:51→20:34)
[2018-03-19] MEDS: ALVIMOPAN 12 MG CAPSULE PO SCH ×2 (07:53→20:35)
[2018-03-19] MEDS: HEPARIN SODIUM,PORCINE 5,000 UNIT/ML 1 ML VIAL SQ SCH ×2 (07:53→15:09)
[2018-03-19] MEDS: FAMOTIDINE 20 MG/2 ML VIAL IV SCH (07:53)
[2018-03-19] MEDS: GABAPENTIN 400 MG CAP PO PRN (10:05)
[2018-03-19] MEDS: ETODOLAC 200 MG CAPSULE PO PRN ×2 (10:05→15:13)
[2018-03-19] MEDS: TAMSULOSIN 0.4 MG CAP.ER.24H PO SCH (17:42)
--- NOTE | 2018-03-19 20:04 | P.PN ---
Subjective Progress Note Date: 03/19/18 Patient is status post lower anterior resection. She is ambulating. She is tolerating diet. She reports increased cough nonproductive. She is looking to rehab for discharge home. She is passing flatus. Objective - Vital Signs Vital signs: Vital Signs Temp 99.9 F H 03/19/18 19:19 Pulse 82 03/19/18 19:19 Resp 17 03/19/18 19:21 BP 133/74 03/19/18 19:19 Pulse Ox 96 03/19/18 14:55 Intake & Output 03/19/18 03/19/18 03/20/18 06:59 18:59 06:59 Intake Total 2118 1000 Balance 2118 1000 Weight 74.843 kg Intake: Intake, IV Titration 2000 Amount D5-0.45% NaCl with KCl 2000 20Meq/l 1,000 ml @ 125 mls/hr IV .Q8H [facility] Rx#: [id number] Oral 118 1000 Other: # Voids 3 3 - Exam ABDOMEN: Optifoam dressing intact. No signs of cellulitis or infection. GENERAL: Well developed and in no acute distress. Pleasant. HEENT: No sclera icterus. Extraocular movements grossly intact. Moist buccal mucosa. Head is atraumatic, normocephalic. Hears conversational speech. No nasal drainage. NECK: Supple without lymphadenopathy. No JV distention. CHEST: Non-labored respirations and equal bilateral excursions. CARDIOVASCULAR: Regular rate and rhythm. Palpable 2+ radial pulses. MUSCULOSKELETAL: No clubbing, cyanosis or edema. NEUROLOGIC: No focal or lateralizing signs. PSYCH: Appropriate affect. Alert and oriented to person, place and time. SKIN: Good skin turgor. Well perfused. - Labs CBC & Chem 7: 03/18/18 06:55 03/18/18 06:55 Assessment and Plan (1) Diverticulitis large intestine Current Visit: Yes Status: Acute Code(s): K57.32 - DVTRCLI OF LG INT W/O PERFORATION OR ABSCESS W/O BLEEDING SNOMED Code(s): 8678482 (2) S/P colectomy Current Visit: Yes Status: Acute Code(s): Z90.49 - ACQUIRED ABSENCE OF OTHER SPECIFIED PARTS OF DIGESTIVE TRACT SNOMED Code(s): 522075521 Plan: 1. Await [place] swing bed status. 2. Repeat CBC. 3. Abdominal binder for comfort. 4. Tessalon Perles for cough.
[2018-03-19] MEDS: BENZONATATE 100 MG CAP PO SCH (20:36)
[2018-03-19 21:29] LABS: Basophils % (A) 0 %; Eosinophils # (A) 0.6 k/uL (0-0.7); Eosinophils % (A) 7 %; HCT 37.4 % (34.0-46.0); HGB 12.7 gm/dL (11.4-16.0); Lymphocytes # (A) 1.4 k/uL (1.0-4.8); Lymphocytes % (A) 18 %; MCH 30.3 pg (25.0-35.0); MCHC 33.9 g/dL (31.0-37.0); MCV 89.3 fL (80.0-100.0); Monocytes # (A) 0.5 k/uL (0-1.0); Monocytes % (A) 6 %; Neutrophils # (A) 5.5 k/uL (1.3-7.7); Neutrophils % (A) 68 %; Platelet Count 289 k/uL (150-450); RBC 4.19 m/uL (3.80-5.40); WBC 8.2 k/uL (3.8-10.6)
--- NOTE | 2018-03-19 22:17 | XR ---
EXAMINATION TYPE: XR chest 2V DATE OF EXAM: 03/19/2018 COMPARISON: 12/02/2014 HISTORY: Cough TECHNIQUE: Frontal and lateral views of the chest are obtained. FINDINGS: Heart and mediastinum are normal. Lungs are clear. Diaphragm is normal. Bony thorax is int act. IMPRESSION: Normal chest. No change.
[2018-03-19] MEDS ORDERED: GABAPENTIN 400 MG CAP ONE (23:30)
[2018-03-19] MEDS ORDERED: FAMOTIDINE 20 MG/2 ML VIAL ONE (23:30)
[2018-03-20] MEDS ORDERED: METOCLOPRAMIDE 5 MG/ML 2 ML VIAL ONE
[2018-03-20] MEDS: METOCLOPRAMIDE 5 MG/ML 2 ML VIAL IVP SCH ×2 (05:00→05:53)
[2018-03-20] MEDS: FAMOTIDINE 20 MG/2 ML VIAL IV SCH ×2 (05:00→08:27)
[2018-03-20] MEDS: HEPARIN SODIUM,PORCINE 5,000 UNIT/ML 1 ML VIAL SQ SCH ×2 (05:00→08:26)
[2018-03-20] MEDS: LACTATED RINGERS 1,000 ML IV SCH (05:28)
[2018-03-20] MEDS ORDERED: PANTOPRAZOLE 40 MG TABLET PO SCH (07:30)
[2018-03-20] MEDS: ALVIMOPAN 12 MG CAPSULE PO SCH (08:26)
[2018-03-20] MEDS: D5-0.45% NACL WITH KCL 20MEQ/L 1,000 ML IV SCH (08:26)
[2018-03-20] MEDS: BENZONATATE 100 MG CAP PO SCH (08:27)
[2018-03-20] MEDS: NON-FORMULARY DRUG (Linaclotide [Linzess] 145 MCG) PO SCH (10:24)
[2018-03-20 10:35] VITALS: BP 113/62; PULSE 89; RESP 16; TEMP 98.2
[2018-03-20] MEDS: GABAPENTIN 400 MG CAP PO PRN (11:23)
--- NOTE | 2018-03-20 11:53 | P.DS ---
Providers Date of admission: 03/15/18 09:49 Expected date of discharge: 03/20/18 Attending physician: Hussein Prather Consults: 03/15/18 13:01 Consult Physician Routine Consulting Provider: Erasmo Mustafa Consult Reason/Comments: Medical management Do you want consulting provider notified?: Yes Primary care physician: [facility] Clinic - Discharge Diagnosis(es) (1) Diverticulitis large intestine Current Visit: Yes Status: Acute (2) S/P colectomy Current Visit: Yes Status: Acute Hospital Course: Patient had an elective low anterior resection by Dr. Prather. She was on the enhanced colon protocol. Pain was controlled with epidural and gabapentin per patient request. Prior to discharge, chest x-ray was normal. Patient's cough resolved. She was tolerating diet. Pain was controlled. She had bowel movements. Pertinent Studies: Chest Xray normal Procedures: Low anterior resection by Dr. Prather Patient Condition at Discharge: Stable Plan - Discharge Summary Discharge Rx Participant: Yes New Discharge Prescriptions: New Docusate [Colace] 100 mg PO BID #20 capsule No Action Gabapentin [Neurontin] 400 mg PO BID PRN PRN Reason: Pain Polyethylene Glycol 3350 [Miralax] 17 gm PO DAILY PRN PRN Reason: Constipation Linaclotide [Linzess] 145 mcg PO BID Diclofenac Sodium [Voltaren] 50 mg PO BID PRN PRN Reason: Pain Sennosides [Senna] 8.6 mg PO BID Vitamin B (Unknown Dose) 1 tab PO DAILY Gummy 1 tab PO DAILY Albuterol Inhaler [Ventolin Hfa Inhaler] 1 - 2 puff INHALATION RT-Q6H PRN PRN Reason: ASTHMA SX Biotin 5 mg PO DAILY Discharge Medication List Gabapentin [Neurontin] 400 mg PO BID PRN 05/28/17 [History] Linaclotide [Linzess] 145 mcg PO BID 05/28/17 [History] Polyethylene Glycol 3350 [Miralax] 17 gm PO DAILY PRN 05/28/17 [History] Diclofenac Sodium [Voltaren] 50 mg PO BID PRN 06/15/17 [History] Sennosides [Senna] 8.6 mg PO BID 06/21/17 [History] Albuterol Inhaler [Ventolin Hfa Inhaler] 1 - 2 puff INHALATION RT-Q6H PRN [History] Gummy 1 tab PO DAILY 03/07/18 [History] Vitamin B (Unknown Dose) 1 tab PO DAILY 03/07/18 [History] Biotin 5 mg PO DAILY 03/15/18 [History] Docusate [Colace] 100 mg PO BID #20 capsule 03/15/18 [Rx] Follow up Appointment(s)/Referral(s): [facility], [NON-STAFF] - 1 Week Hussein Prather MD [STAFF PHYSICIAN] - 03/28/18 3:00 pm Patient Instructions/Handouts: Bowel Resection (DC) Activity/Diet/Wound Care/Special Instructions: No bathtub soaks. Sponge bath only. No lifting over 10 pounds in 2 weeks. Discharge Disposition: HOME WITH HOME HEALTH SERVICES
--- NOTE | 2018-03-20 19:36 | P.PN ---
Subjective Progress Note Date: 03/19/18 Progress note being dictated for Dr. Mustafa Interval history:Patient is a 57-year-old female with known history of asthma, hyperlipidemia and history of GERD status post Mary fundoplication as well as chronic severe constipation with rectosigmoid bowel distention as well as diverticulitis was admitted to the hospital for low anterior resection. Patient tolerated the procedure. Currently pain is controlled with epidural. Complains of nausea otherwise denied any vomiting. No chest pain or shortness of breath. No headache or dizziness or lightheadedness. 03/16/2018 Patient denied any complaints of abdominal pain today. Patient is tolerating oral diet and did not have a bowel movement. No nausea vomiting. No complaints of chest pain or shortness of breath. Pain is controlled with epidural. No fever no chills. 03/17/2018 Patient has not had a bowel movement. Patient is complaining of nausea today. Currently on Reglan. Otherwise tolerating liquid diet. Pain is controlled with epidural. No fever no chills. No headache or dizziness or lightheadedness. All other review of systems negative except the above Current medications reviewed 03/18/18 pain controlled. Earlier this morning had an episode of nausea with vomiting. No flatus, no bowel movement, no diarrhea. Low-grade fevers, T-max 99.8, normal WBC. Maintaining O2 sats in the mid 90s on room air. 03/19/2018 T-max 99.3. Pain controlled, tolerating diet with no nausea or vomiting. Positive bowel movement. Ambulating, tolerated exertion well. Maintaining O2 sats in the high 90s on room air. Objective - Vital Signs Vital signs: Vital Signs Temp 98.5 F 03/19/18 07:35 Pulse 80 03/19/18 07:35 Resp 18 03/19/18 07:35 BP 126/76 03/19/18 07:35 Pulse Ox 96 03/19/18 07:35 Intake & Output 03/18/18 03/19/18 03/19/18 18:59 06:59 18:59 Intake Total 2118 Output Total 1200 Balance -1200 8 Weight 74.843 kg Intake: Intake, IV Titration 2000 Amount D5-0.45% NaCl with KCl 2000 20Meq/l 1,000 ml @ 125 mls/hr IV .Q8H [facility] Rx#: [id number] Oral 118 Output: Urine 1200 Uretheral (Resendiz) 1200 Other: Voiding Method Indwelling Catheter # Voids 2 3 # Bowel Movements 1 - Exam Patient is lying in the bed comfortably, no acute distress HEENT: Normocephalic. Neck is supple. Pupils reactive. Nostrils clear. Oral cavity is moist. Neck reveals no JVD, carotid bruits, or thyromegaly. CHEST EXAMINATION: Trachea is central. Symmetrical expansion. Lung cho clear to auscultation and percussion. CARDIAC: Normal S1, S2 with no gallops. No murmurs ABDOMEN: Soft. Bowel sounds sluggish. Surgical site dressing intact. No organomegaly. No abdominal bruits. Extremities: reveal no edema. No clubbing or cyanosis Neurologically awake, alert, oriented x3 with well-coordinated movements. No focal deficits noted Skin: No rash or skin lesions. Psychiatric: Coperative. Nonsuicidal Musculoskeletal: No joint swelling or deformity. Normal range of motion. - Labs CBC & Chem 7: 03/19/18 21:11 03/18/18 06:55 Assessment and Plan Assessment: Low anterior resection of the colon due to diverticulitis and constipation chronic Asthma stable. GERD with history of Mary fundoplication Hyperlipidemia Chronic severe constipation with the rectosigmoid bowel distention History of hiatal hernia Previous history of smoking Plan: Continue on current medication regime ,monitoring and symptomatic treatment. Subacute rehab at discharge. Pain management, diet advanced as per surgery. Aggressive pulmonary toileting with incentive spirometer reinforce. Increase ambulation as tolerated. Discharge planning in progress for tomorrow as per surgery. The impression and plan of care has been dictated as directed. : I performed a history and examination of this patient, discussed the same with the dictator. I agree with the dictator's note ,documented as a scribe. Any additional findings or plans will be noted.
--- NOTE | 2018-03-20 19:42 | P.PN ---
Subjective Progress Note Date: 03/20/18 Progress note being dictated for Dr. Mustafa Interval history:Patient is a 57-year-old female with known history of asthma, hyperlipidemia and history of GERD status post Mary fundoplication as well as chronic severe constipation with rectosigmoid bowel distention as well as diverticulitis was admitted to the hospital for low anterior resection. Patient tolerated the procedure. Currently pain is controlled with epidural. Complains of nausea otherwise denied any vomiting. No chest pain or shortness of breath. No headache or dizziness or lightheadedness. 03/16/2018 Patient denied any complaints of abdominal pain today. Patient is tolerating oral diet and did not have a bowel movement. No nausea vomiting. No complaints of chest pain or shortness of breath. Pain is controlled with epidural. No fever no chills. 03/17/2018 Patient has not had a bowel movement. Patient is complaining of nausea today. Currently on Reglan. Otherwise tolerating liquid diet. Pain is controlled with epidural. No fever no chills. No headache or dizziness or lightheadedness. All other review of systems negative except the above Current medications reviewed 03/18/18 pain controlled. Earlier this morning had an episode of nausea with vomiting. No flatus, no bowel movement, no diarrhea. Low-grade fevers, T-max 99.8, normal WBC. Maintaining O2 sats in the mid 90s on room air. 03/19/2018 T-max 99.3. Pain controlled, tolerating diet with no nausea or vomiting. Positive bowel movement. Ambulating, tolerated exertion well. Maintaining O2 sats in the high 90s on room air. 03/20/2018 tolerating diet, no nausea vomiting. Positive bowel movement .T-max 99.9. Denies cough. Chest x-ray nonacute. Maintaining O2 sats of 98% on room air. Tolerating increased ambulation. Awaiting discharge. Objective - Vital Signs Vital signs: Vital Signs Temp 98.2 F 03/20/18 07:45 Pulse 89 03/20/18 07:45 Resp 16 03/20/18 07:45 BP 113/62 03/20/18 07:45 Pulse Ox 98 03/20/18 07:45 Intake & Output 03/20/18 03/20/18 03/21/18 06:59 18:59 06:59 Intake Total 1180 Balance 1180 Intake: Intake, IV Titration 1000 Amount D5-0.45% NaCl with KCl 1000 20Meq/l 1,000 ml @ 125 mls/hr IV .Q8H ADRY Rx#: [id number] Oral 180 Other: # Voids 2 # Bowel Movements 1 - Exam Patient is sitting up at bedside, no acute distress HEENT: Normocephalic. Neck is supple. Pupils reactive. Oral cavity is moist. Neck reveals no JVD, carotid bruits, or thyromegaly. CHEST EXAMINATION: Trachea is central. Symmetrical expansion. Lung cho clear to auscultation and percussion. CARDIAC: Normal S1, S2 with no gallops. No murmurs ABDOMEN: Soft. Bowel sounds sluggish. Surgical site dressing intact. No organomegaly. No abdominal bruits. Extremities: reveal no edema. No clubbing or cyanosis Neurologically awake, alert, oriented x3 with well-coordinated movements. No focal deficits noted Skin: No rash or skin lesions. Psychiatric: Coperative. Nonsuicidal Musculoskeletal: No joint swelling or deformity. Normal range of motion. - Labs CBC & Chem 7: 03/19/18 21:11 03/18/18 06:55 Assessment and Plan Assessment: Low anterior resection of the colon due to diverticulitis and constipation chronic Asthma stable. GERD with history of Mary fundoplication Hyperlipidemia Chronic severe constipation with the rectosigmoid bowel distention History of hiatal hernia Previous history of smoking Mild atelectasis Plan: Continue on current medication regime ,monitoring and symptomatic treatment. Discharge planning in progress for today as per surgery. Maintain Aggressive pulmonary toileting with incentive spirometer. Further recommendations to follow. The impression and plan of care has been dictated as directed. : I performed a history and examination of this patient, discussed the same with the dictator. I agree with the dictator's note ,documented as a scribe. Any additional findings or plans will be noted.
== END 2018-03-20 13:14 | disposition home health service (06) | DRG 330 ==
LOC: 2ORMAIN 09:49 → 3SUR 13:49
PROVIDERS: ADMIT Surgery; ATTEND Surgery
PROC: 0DTN0ZZ Resection of Sigmoid Colon, Open Approach (ICD-10-PCS; principal; 2018-03-15 12:00)
DX: K57.32 Diverticulitis of large intestine without perforation or abscess without bleeding (principal); J98.11 Atelectasis; E78.5 Hyperlipidemia, unspecified; K59.09 Other constipation; J45.909 Unspecified asthma, uncomplicated; K21.9 Gastro-esophageal reflux disease without esophagitis; K44.9 Diaphragmatic hernia without obstruction or gangrene; Z90.710 Acquired absence of both cervix and uterus; Z87.891 Personal history of nicotine dependence; Z79.899 Other long term (current) drug therapy; Z88.1 Allergy status to other antibiotic agents; Z91.041 Radiographic dye allergy status; Z88.0 Allergy status to penicillin; Z88.7 Allergy status to serum and vaccine; Z88.8 Allergy status to other drugs, medicaments and biological substances; Z91.018 Allergy to other foods; Z80.9 Family history of malignant neoplasm, unspecified
CPT/HCPCS: 71046; 80048; 83735; 84100; 84132; 85025; 86850; 86900; 86901; 88307; 94760

== ENCOUNTER 2023-07-20 07:49 | Day surgery (SDC) | payer OTHER ==
--- NOTE | 2023-07-20 07:13 | P.GSHP ---
History of Present Illness H&P Date: 07/20/23 CHIEF COMPLAINT: Cholecystitis HISTORY OF PRESENT ILLNESS: The patient is a 62-year-old female who presents with history of epigastric including right upper quadrant abdominal pain. She underwent diagnostic studies for her gallbladder. Separately her clinical picture was consistent with cholecystitis. Now she presents for surgical intervention. PAST MEDICAL HISTORY: Please see list PAST SURGICAL HISTORY: Please see list MEDICATIONS: Please see list ALLERGIES: Please see list SOCIAL HISTORY: Please see list FAMILY HISTORY: Please see list REVIEW OF ORGAN SYSTEMS: CONSTITUTIONAL: No reports of fevers or chills. HEENT: Denies any troubles with the vision or hearing. ENDOCRINE: No reports of hypothyroidism. No diabetes. RESPIRATORY: No recent pneumonias. CARDIOVASCULAR: Denies chest pain or palpitations GI: No blood in stools or constipation. MUSCULOSKELETAL: Has occasional joint pain including back pain. NEURO: No seizure disorders or headaches. No recent stroke. PSYCH: No depression or suicidal ideation. GENITOURINARY: No active blood in urine. No urinary hesitancy. HEMATOLOGIC: No personal or family history of DVTs or pulmonary emboli. SKIN: No skin cancer. PHYSICAL EXAM: VITAL SIGNS: Afebrile vital signs stable GENERAL: Well-developed pleasant in no acute distress. HEENT: No scleral icterus. Extraocular movements grossly intact. Moist buccal mucosa. NECK: Supple without lymphadenopathy. CHEST: Unlabored respirations. Equal bilateral excursions. CARDIOVASCULAR: Regular rate regular rhythm rhythm. Distal 2+ pulses. ABDOMEN: Soft, nondistended. Tender along the epigastrium and right upper quadrant. MUSCULOSKELETAL: No clubbing, cyanosis, or edema. NEURO: Cranial nerves II to XII within normal limits. No focal or lateralizing signs. PSYCH: Alert and oriented to person, place and time. SKIN: Well-perfused good skin turgor. ASSESSMENT: 1. Epigastric and right upper quadrant abdominal pain 2. Chronic cholecystitis 3. Symptomatic gallstones. PLAN: 1. Will need a robotic cholecystectomy possible open. Benefits and risks were described. 2. Heparin for DVT prophylaxis 5000 units. 3. Antibiotic prophylaxis. 4. CBC and CMP on day of procedure 5. Non-narcotic pre and post op pain management reviewed. 6. Indocyanine green for biliary imaging. Past Medical History Past Medical History: Asthma, CVA/TIA, GERD/Reflux Additional Past Medical History / Comment(s): POTS (HAS HAD NO RECENT TACHYCARDIA). IBS-severe constipation, hiatal hernia. SITUALTIONAL ASTHMA. cva 2017 approx no residual History of Any Multi-Drug Resistant Organisms: None Reported Past Surgical History: Hysterectomy, Tonsillectomy Additional Past Surgical History / Comment(s): LEFT SHOULDER REPAIR @ [facility]. tonsillectomy x2,vocal polyps removed,elbow procedures to repair tears. nickolas plantar fasciitis,rectocele. EYAD REPAIR (PATIEN STATES ALL THE MESH AND ETHAN PASSED RECTALLY). Past Anesthesia/Blood Transfusion Reactions: Postoperative Nausea & Vomiting (PONV) Additional Past Anesthesia/Blood Transfusion Reaction / Comment(s): no hx blood transfusion Smoking Status: Former smoker - Past Family History Mother Family Medical History: No Reported History Father Family Medical History: Cancer Medications and Allergies Home Medications Medication Instructions Recorded Confirmed Type Linaclotide [Linzess] 145 mcg PO BID 05/28/17 07/17/23 History polyethylene glycoL 3350 [Miralax] 17 gm PO DAILY PRN 05/28/17 07/17/23 History Sennosides [Senna] 8.6 mg PO BID 06/21/17 07/17/23 History Albuterol Inhaler [Ventolin Hfa 1 - 2 puff INHALATION RT-Q6H PRN 03/07/18 07/17/23 History Inhaler] Docusate [Colace] 100 mg PO BID #20 capsule 03/15/18 07/17/23 Rx Aspirin [Adult Low Dose Aspirin EC] 81 mg PO DAILY 04/16/23 07/17/23 History Diclofenac Sodium [Voltaren 1 applic TOPICAL DAILY 04/16/23 07/17/23 History Arthritis Pain 1% Gel] Gabapentin 300 mg PO BID 04/16/23 07/17/23 History Multivitamin [Multivitamins Adult 1 tab PO DAILY 04/16/23 07/17/23 History Gummies] Allergies Allergy/AdvReac Type Severity Reaction Status Date / Time cortisone Allergy Anaphylaxis Verified 07/17/23 10:04 Iodinated Contrast Media Allergy Rash/Hives Verified 07/17/23 10:04 [Iodinated Contrast- Oral and IV Dye] iodine Allergy Rash/Hives Verified 07/17/23 10:04 levofloxacin [From Levaquin] Allergy tears Verified 07/17/23 10:04 multiple joints wendy Allergy Anaphylaxis Verified 07/17/23 10:04 penicillin V [From Pen-Vee K] Allergy Rash/Hives Verified 07/17/23 10:04 FLU VACCINE Allergy Nausea & Uncoded 07/17/23 10:04 Vomiting, FEVER
[~2023-07-20 07:49] MED LIST changes: +ACETAMINOPHEN TAB 500 MG TAB PO PRN; -DEXAMETHASONE SOD PHOSPHATE 10 MG/ML 1 ML VIAL IV ONE; -HEPARIN SODIUM,PORCINE 5,000 UNIT/ML 1 ML VIAL SQ ONE; +HEPARIN SODIUM,PORCINE/PF 5,000 UNIT/0.5 ML SYRINGE SQ PRN; +HYDROmorphone 0.5 MG/0.5 ML SYRINGE IVP PRN; +LACTATED RINGERS 1,000 ML IV SCH; +LIDOCAINE 1% (10MG/ML) FOR IV START INTRADERMA PRN; +ONDANSETRON 4 MG/2 ML VIAL IVP PRN; +SCOPOLAMINE 1 MG/72 HR PATCH TRANSDERM STA; -SCOPOLAMINE 1.5MG/72HR PATCH TRANSDERM ONE; -ceFAZolin IN SWFI 2 GM/20 ML SYRINGE IVP ONE; -fentaNYL (PF) 50 MCG/ML 2 ML AMP IV PRN
[2023-07-20] MEDS ORDERED: DEXAMETHASONE SOD PHOSPHATE 4 MG/ML 1 ML VIAL IVP ONE (08:42)
[2023-07-20] MEDS ORDERED: MIDAZOLAM 2 MG/2 ML VIAL IVP ONE (08:50)
[2023-07-20 08:52] LABS: Basophils % (A) 1 %; Eosinophils # (A) 0.2 k/uL (0-0.7); Eosinophils % (A) 3 %; HCT 43.1 % (34.0-46.0); HGB 14.2 gm/dL (11.4-16.0); Lymphocytes # (A) 2.2 k/uL (1.0-4.8); Lymphocytes % (A) 39 %; MCH 30.3 pg (25.0-35.0); MCV 91.8 fL (80.0-100.0); Mean Platelet Volume 7.4; Monocytes # (A) 0.4 k/uL (0-1.0); Monocytes % (A) 7 %; Neutrophils # (A) 2.8 k/uL (1.3-7.7); Neutrophils % (A) 49 %; Platelet Count 307 k/uL (150-450); RBC 4.69 m/uL (3.80-5.40); RDW 12.7 % (11.5-15.5); WBC 5.6 k/uL (3.8-10.6)
[2023-07-20 09:07] LABS: ALT 18 U/L (4-34); AST 25 U/L (14-36); African American GFR (CKD) >90 (>60 ml/min/1.73 sqM); Albumin 4.2 g/dL (3.5-5.0); Alkaline Phosphatase 58 U/L (38-126); Anion Gap 9 mmol/L; Blood Urea Nitrogen 13 mg/dL (7-17); Calcium 9.6 mg/dL (8.4-10.2); Carbon Dioxide 23 mmol/L (22-30); Chloride 108 mmol/L (98-107); Glucose 86 mg/dL (74-99); Non-African American GFR(CKD) 88 (>60 ml/min/1.73 sqM); Potassium 4.1 mmol/L (3.5-5.1); Sodium 140 mmol/L (137-145); Total Bilirubin 0.6 mg/dL (0.2-1.3); Total Protein 6.7 g/dL (6.3-8.2)
[2023-07-20] MEDS ORDERED: KETOROLAC 15 MG/ML 1 ML VIAL ONE (09:13)
[2023-07-20] MEDS ORDERED: SUCCINYLCHOLINE CHLORIDE 200 MG/10 ML VIAL IV ONE (09:13)
[2023-07-20] MEDS ORDERED: fentaNYL (PF) 50 MCG/ML 2 ML AMP ONE (09:13)
[2023-07-20] MEDS ORDERED: LIDOCAINE 1% INJ 10MG/ML (20 ML MDV) ONE (09:13)
[2023-07-20] MEDS ORDERED: ePHEDrine 50 MG/ML 1 ML VIAL ONE (09:13)
[2023-07-20] MEDS ORDERED: GLYCOPYRROLATE 0.2 MG/ML 2 ML VIAL ONE (09:13)
[2023-07-20] MEDS ORDERED: ROCURONIUM 10 MG/ML (5 ML VIAL) IV ONE (09:13)
[2023-07-20] MEDS ORDERED: PHENYLEPHRINE 10 MG/ML 5 ML VIAL ONE (09:13)
[2023-07-20] MEDS ORDERED: INDOCYANINE GREEN 25 MG VIAL IV ONE (09:13)
[2023-07-20] MEDS ORDERED: PROPOFOL 10 MG/ML 20 ML VIAL IV ONE (09:13)
[2023-07-20] MEDS ORDERED: MIDAZOLAM 2 MG/2 ML VIAL ONE (09:13)
[2023-07-20] MEDS ORDERED: DEXAMETHASONE SOD PHOSPHATE 10 MG/ML 1 ML VIAL ONE (09:13)
[2023-07-20] MEDS ORDERED: NEOSTIGMINE 1 MG/ML 10 ML VIAL ONE (09:13)
[2023-07-20] MEDS ORDERED: diphenhydrAMINE 50 MG/ML 1 ML VIAL ONE (09:13)
[2023-07-20] MEDS ORDERED: LIDOCAINE 0.5%-EPI 1:200,000 50 ML VIAL SQ ONE (09:44)
[2023-07-20] MEDS ORDERED: LACTATED RINGERS 1,000 ML IV ONE (10:34)
[2023-07-20 10:55] VITALS: TEMP 96.9
--- NOTE | 2023-07-20 12:44 | P.OP ---
Date of Procedure: 07/20/23 Description of Procedure: SURGEON: MEENU VEE MD PREOPERATIVE DIAGNOSES: 1. Symptomatic gallstone 2. Right upper quadrant abdominal pain POSTOPERATIVE DIAGNOSES: 1. Symptomatic gallstone 2. Right upper quadrant abdominal pain 3. Chronic cholecystitis 4. Peritoneal adhesions, right upper quadrant OPERATION: Robotic-assisted da Robel Xi laparoscopic cholecystectomy, multiport with FIREFLY ESTIMATED BLOOD LOSS: 10 mL. SPECIMENS REMOVED: Gallbladder. COMPLICATIONS: None. OPERATIVE FINDINGS: 1. Moderate scarring over entire gallbladder with peritoneal adhesions, pericholecystic with features of chronic cholecystitis INDICATIONS: The patient is a -[id number] female who presents with symptomatic gallstones. Robotic assisted laparoscopic approach was described. Benefits and risks of the procedure including but not limited to bleeding, infection, injury to the biliary tree was described. Informed consent was obtained. DESCRIPTION OF PROCEDURE: Patient was brought to the operating room, placed in supine position. After general induction, the abdomen had been prepped and draped in standard sterile fashion. The robotic da Robel XI system was primed. After a timeout protocol was performed, the patient had been prepped and draped in standard sterile fashion. The patient was injected with indocyanine green. A 5 mm 0 degrees laparoscopic trocar entry was performed along the left upper quadrant. The abdomen insufflated to 15 mmHg pressure which was tolerated well. Diagnostic laparoscopy demonstrated no injury to bowel viscera or mesentery. The liver surface was unremarkable. Next, two 8 mm robotic ports were placed along the right upper abdomen. The camera 8-mm port was maintained along the epigastrium. Another 8 mm port was placed along the left upper abdominal wall after exchanging the 5 mm port. Please note that the ports were placed at least 10 to 15 cm away from the target anatomy of the gallbladder. The robot was docked along the left lateral abdomen. The patient was repositioned in reverse Trendelenburg position. Using a grasper for arm 3, a grasper for arm 4, including hook cautery for arm 1, the robotic system was docked and primed as described. Instruments were interchanged by the captain assistant including hook cautery, Bovie cautery and clip appliers. I had sat at the console. The gallbladder was scarred with peritoneal adhesions. Lysis of adhesions was performed to free the gallbladder from the surrounding tissues. Next attention was brought to the infundibulum and cystic structures. The infundibulum and cystic duct were dissected free from surrounding tissues. The cystic duct was isolated. FIREFLY was used to identify the cystic artery and cystic structures. A critical view of safety was obtained. Large PLASTIC clips were used throughout the entire case. Using a clip yarn wrapper, 2 clips were placed at the junction of the infundibulum and cystic duct. The cystic duct was divided between clips. Next, the cystic artery was similarly clipped and cauterized. Electro-Bovie cautery was used to remove the gallbladder from the hepatic fossa. Hemostasis was checked and found to be adequate. The robot was undocked. I re-scrubbed into the case. Using a 10 mm Endo Catch bag via the left upper quadrant incision, the specimen was removed from the abdominal cavity. All pneumoperitoneum instruments were evacuated from the abdominal cavity. The incisions were reapproximated using 4-0 Monocryl in an interrupted subcuticular fashion. Fascial defects were less than 8 mm in size. Please note along the trocar sites, local anesthetic was placed as a field block prior to insertion of all instruments. Liquid glue was applied to the skin. At the end of the procedure needle, sponge, and instrument count had been verified correct by the retail service technician. The patient was transferred to postanesthesia care unit in stable condition. Intraoperative films were shared with the patient's family. Plan - Discharge Summary Discharge Rx Participant: No New Discharge Prescriptions: New RX: Simethicone [Gas-X] 125 mg PO AC-TID PRN #20 capsule PRN Reason: Pain Acetaminophen Tab [Tylenol Tab] 1,000 mg PO Q6HR PRN #30 tablet PRN Reason: Pain RX: Ibuprofen [Motrin] 600 mg PO Q8HR PRN #30 tab PRN Reason: Pain Continue RX: polyethylene glycoL 3350 [Miralax] 17 gm PO DAILY PRN PRN Reason: Constipation RX: Linaclotide [Linzess] 145 mcg PO BID RX: Sennosides [Senna] 8.6 mg PO BID RX: Albuterol Inhaler [Ventolin Hfa Inhaler] 1 - 2 puff INHALATION RT-Q6H PRN PRN Reason: ASTHMA SX RX: Docusate [Colace] 100 mg PO BID #20 capsule RX: Diclofenac Sodium [Voltaren Arthritis Pain 1% Gel] 1 applic TOPICAL DAILY RX: Aspirin [Adult Low Dose Aspirin EC] 81 mg PO DAILY RX: Multivitamin [Multivitamins Adult Gummies] 1 tab PO DAILY RX: Gabapentin 300 mg PO BID Discharge Medication List RX: Linaclotide [Linzess] 145 mcg PO BID 05/28/17 [History] RX: polyethylene glycoL 3350 [Miralax] 17 gm PO DAILY PRN 05/28/17 [History] RX: Sennosides [Senna] 8.6 mg PO BID 06/21/17 [History] RX: Albuterol Inhaler [Ventolin Hfa Inhaler] 1 - 2 puff INHALATION RT-Q6H PRN 03/07/18 [History] RX: Docusate [Colace] 100 mg PO BID #20 capsule 03/15/18 [Rx] RX: Aspirin [Adult Low Dose Aspirin EC] 81 mg PO DAILY 04/16/23 [History] RX: Diclofenac Sodium [Voltaren Arthritis Pain 1% Gel] 1 applic TOPICAL DAILY 04/16/23 [History] RX: Gabapentin 300 mg PO BID 04/16/23 [History] RX: Multivitamin [Multivitamins Adult Gummies] 1 tab PO DAILY 04/16/23 [History] Acetaminophen Tab [Tylenol Tab] 1,000 mg PO Q6HR PRN #30 tablet 07/20/23 [Rx] RX: Ibuprofen [Motrin] 600 mg PO Q8HR PRN #30 tab 07/20/23 [Rx] RX: Simethicone [Gas-X] 125 mg PO AC-TID PRN #20 capsule 07/20/23 [Rx] Follow up Appointment(s)/Referral(s): Meenu Vee MD [STAFF PHYSICIAN] - 07/24/23 ( WILL DO TELE CALL BETWEEN 8 AND 430PM) Patient Instructions/Handouts: *Sur[facility] - Laparoscopic Cholecystectomy Discharge Instructions, *[facility] - (Anesthesia) Discharge Instructions Outpatient Surgery, Low Fat Diet (DC) Activity/Diet/Wound Care/Special Instructions: TELEHEALTH - WILL CALL YOU BETWEEN 8 am to 8 pm No lifting over 10 pounds in 2 weeks until Aug 03January shower. No bath tub soaks for two weeks until Aug 03 Diet as tolerated. No driving while on narcotics. Use Tylenol and ibuprofen or Aleve scheduled for the next 24-48 hours for best pain relief. Use ice along incisions for today to prevent swelling. For today, avoid high fat foods for next 2 days Discharge Disposition: HOME SELF-CARE
[2023-07-20 13:10] VITALS: BP 143/74; PULSE 66; RESP 18
== END 2023-07-20 12:58 | disposition home or self-care (01) ==
LOC: OR 07:49
PROVIDERS: ATTEND Surgery Plastic and Reconstructive Surgery
DX: K80.10 Calculus of gallbladder with chronic cholecystitis without obstruction (principal); J45.909 Unspecified asthma, uncomplicated; K21.9 Gastro-esophageal reflux disease without esophagitis; Z86.73 Personal history of transient ischemic attack (TIA), and cerebral infarction without residual deficits; Z90.710 Acquired absence of both cervix and uterus; Z90.89 Acquired absence of other organs; Z98.890 Other specified postprocedural states; Z87.891 Personal history of nicotine dependence; Z79.1 Long term (current) use of non-steroidal anti-inflammatories (NSAID); Z91.041 Radiographic dye allergy status; Z88.8 Allergy status to other drugs, medicaments and biological substances; Z88.1 Allergy status to other antibiotic agents; Z88.0 Allergy status to penicillin
CPT/HCPCS: 80053; 85025; 47562; J2250; J0330; J1200; J1100 ×2; J2710; J0690; J2405; J2001; J3010; J1885; J2704; J1644; J2371; 88304